=== PATIENT | male | born 1945 | race Caucasian/White ===

== ENCOUNTER 2016-05-02 06:01 | Day surgery (SDC) | payer MEDICARE, OTHER ==
[2016-05-02] MEDS ORDERED: PHENYLEPHRINE 2.5% OPHTH 2 ML DROPS ONE (06:25)
[2016-05-02] MEDS ORDERED: CYCLOPENTOLATE 1% OPHTH DROPS 2 ML OPTH ONE (06:46)
[2016-05-02] MEDS ORDERED: PROPARACAINE 0.5% OPHTH DROPS 15 ML OPTH ONE (06:46)
[2016-05-02] MEDS ORDERED: LIDOCAINE-MPF 2% 5 ML VIAL IM ONE (06:46)
[2016-05-02] MEDS ORDERED: KETOROLAC 0.45% OPHTH DROPS OPTH ONE (06:46)
[2016-05-02] MEDS ORDERED: PHENYLEPHRINE 2.5% OPHTH 2 ML DROPS OPTH ONE (06:46)
[2016-05-02] MEDS ORDERED: LACTATED RINGERS 1,000 ML IV ONE ×2 (07:31→08:00)
[2016-05-02] MEDS ORDERED: MIDAZOLAM 2 MG/2 ML VIAL IVP ONE (07:33)
[2016-05-02] MEDS ORDERED: EPINEPHrine 1 MG/ML AMP IVP ONE (07:38)
[2016-05-02] MEDS ORDERED: BRIMONIDINE 0.2% OPHTH DROPS 5 ML OPTH ONE (07:38)
[2016-05-02] MEDS ORDERED: TIMOLOL 0.5% OPHTH DROPS OPTH ONE (07:39)
[2016-05-02] MEDS ORDERED: CHONDR SULF/HYALURONATE SYRINGE IO ONE (07:41)
[2016-05-02] MEDS ORDERED: BSS/LIDOCAINE/EPINEPHRINE 1 ML SYRINGE IO ONE ×2 (07:45)
[2016-05-02] MEDS ORDERED: TRIAMCIN/MOXIFLOX/VANCO 1 ML VIAL IO ONE ×2 (07:46)
== END 2016-05-02 06:02 | disposition home or self-care (01) ==
PROC: 08RJ3JZ Replacement of Right Lens with Synthetic Substitute, Percutaneous Approach (ICD-10-PCS; principal; 2016-05-02 07:30)
DX: E11.36 Type 2 diabetes mellitus with diabetic cataract (principal); H25.11 Age-related nuclear cataract, right eye; I10 Essential (primary) hypertension; E78.00 Pure hypercholesterolemia, unspecified; Z79.84 Long term (current) use of oral hypoglycemic drugs; Z87.891 Personal history of nicotine dependence
CPT/HCPCS: 66984; A9270; J7120; V2632

== ENCOUNTER 2016-10-03 08:08 | Day surgery (SDC) | payer MEDICARE, OTHER ==
[~2016-10-03 08:08] MED LIST: BRIMONIDINE 0.2% OPHTH DROPS 5 ML ONE; CYCLOPENTOLATE 1% OPHTH DROPS 2 ML ONE; KETOROLAC 0.45% OPHTH DROPS ONE; PHENYLEPHRINE 2.5% OPHTH 2 ML DROPS ONE; PROPARACAINE 0.5% OPHTH DROPS 15 ML ONE; TIMOLOL 0.5% OPHTH DROPS ONE
[2016-10-03] MEDS ORDERED: LACTATED RINGERS 500 ML IV ONE (08:26)
[2016-10-03] MEDS ORDERED: PROPARACAINE 0.5% OPHTH DROPS 15 ML OPTH ONE ×2 (08:35→09:25)
[2016-10-03] MEDS ORDERED: CYCLOPENTOLATE 1% OPHTH DROPS 2 ML OPTH ONE (08:35)
[2016-10-03] MEDS ORDERED: KETOROLAC 0.45% OPHTH DROPS OPTH ONE (08:35)
[2016-10-03] MEDS ORDERED: PHENYLEPHRINE 2.5% OPHTH 2 ML DROPS OPTH ONE (08:35)
[2016-10-03] MEDS ORDERED: CHONDR SULF/HYALURONATE SYRINGE IO ONE (09:25)
[2016-10-03] MEDS ORDERED: TIMOLOL 0.5% OPHTH DROPS OPTH ONE (09:25)
[2016-10-03] MEDS ORDERED: BSS/LIDOCAINE/EPINEPHRINE 1 ML SYRINGE IO ONE (09:25)
[2016-10-03] MEDS ORDERED: BRIMONIDINE 0.2% OPHTH DROPS 5 ML OPTH ONE (09:25)
[2016-10-03] MEDS ORDERED: TRIAMCIN/MOXIFLOX/VANCO 1 ML VIAL IO ONE (09:25)
[2016-10-03] MEDS ORDERED: EPINEPHrine 1 MG/ML AMP IVP ONE (09:25)
[2016-10-03] MEDS ORDERED: MIDAZOLAM 2 MG/2 ML VIAL IVP ONE (09:30)
[2016-10-03 10:08] VITALS: BP 119/58
--- NOTE | 2016-10-03 10:47 | OPERATIVE REPORT ---
DATE OF SURGERY: 10/03/2016 00:00:00 PREOPERATIVE DIAGNOSIS: Visually significant cataract, left eye. Cataract surgery was performed on th e right eye on 05/02/2016. POSTOPERATIVE DIAGNOSIS: Visually significant cataract, left eye. Cataract surgery was performed on t he right eye on 05/02/2016. NAME OF PROCEDURE: Phacoemulsification posterior chamber intraocular lens implant, left eye. SURGEON: Dave Chen MD. ANESTHESIA: Monitored anesthesia care. COMPLICATIONS: None. 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 Best corrected visual acuity was 20/30 with glare to 20/400 in the lef t eye. INDICATIONS FOR SURGERY: Overall decrease in vision, difficulty reading, difficulty seeing words and games scores on TV, and difficulty with glare or bright lights in any situation. He was consented at length concerning the risks and benefits of cataract surgery, after which he expressed a desire to pr oceed with surgery. OPERATIVE PROCEDURE: The patient was taken into OR #2 and placed under monitored anesthesia care. A s terile time-out was conducted confirming the correct patient, correct procedure, and correct surgical site. He was placed under the LenSx laser and his eye docked to the laser interface. The laser perfo rmed the capsulotomy, lens softening, phaco wounds, and arcuate keratotomy incisions. He was then rem barrett to the operating microscope and given topical anesthesia and then prepped and draped in the usua l sterile fashion. The eye was entered at the 6- and 3 o'clock positions. Intracameral Shugarcaine wa s injected into the anterior chamber, followed by Viscoat. Capsulorrhexis flap created by the LenSx l aser was removed from the anterior chamber. The nucleus was hydrodissected and phacoemulsified. The c ortex was evacuated using automated infusion aspiration. Provisc was injected in the capsular bag and a 17.5 diopter intraocular lens inserted into the bag. Approximately 0.8 mL of a mixture of triamcin olone, moxifloxacin, and vancomycin was injected subconjunctivally in the superior quadrant for infec tion and inflammatory prophylaxis. I/A was used to evacuate the viscoelastic materials. The eye was i nflated to physiologic pressure using balanced salt solution and found to be watertight. The patient was taken from the operating room in good condition and given postoperative instructions. JOB #: [id number] EXT JOB #:[id number]
== END 2016-10-03 08:09 | disposition home or self-care (01) ==
LOC: SDS 08:08
PROVIDERS: ATTEND Ophthalmology
PROC: 08RK3JZ Replacement of Left Lens with Synthetic Substitute, Percutaneous Approach (ICD-10-PCS; principal; 2016-10-03 09:30)
DX: H25.12 Age-related nuclear cataract, left eye (principal); R73.03 Prediabetes; E78.00 Pure hypercholesterolemia, unspecified; Z79.84 Long term (current) use of oral hypoglycemic drugs
CPT/HCPCS: 66984; A9270; J3490; V2632

== ENCOUNTER 2017-12-11 15:25 | Outpatient (CLI) | payer MEDICARE, OTHER ==
[2017-12-11 15:59] LABS: ALBUMIN 4.3 g/dL (3.2-5.5); ALBUMIN/GLOBULIN RATIO 1.3 (1.0-2.2); BILIRUBIN,TOTAL 0.5 mg/dL (0.2-1.0); CALCIUM 8.7 mg/dL (8.5-10.3); CREATININE 0.8 mg/dL (0.6-1.2); TOTAL PROTEIN 7.5 g/dL (6.7-8.2)
== END 2017-12-11 15:26 | disposition home or self-care (01) ==
LOC: LAB 15:25
PROVIDERS: ATTEND Family Medicine
DX: E87.5 Hyperkalemia (principal)
CPT/HCPCS: 36415; 80053

== ENCOUNTER → 2020-08-27 | Outpatient (CLI) | payer MEDICARE, OTHER | END | disposition short-term general hospital (02) | LOC: EMS 21:12 | DX: Z04.3 Encounter for examination and observation following other accident (principal); M54.9 Dorsalgia, unspecified | CPT/HCPCS: A0425; A0427 ==